=== PATIENT | female | born 1985 | race Asian ===

== ENCOUNTER 2017-04-12 17:02 | Emergency (ER) | payer MEDICAID ==
[~2017-04-12] VITALS: Ht 160 cm; Wt 63.7 kg
[2017-04-12 17:12] VITALS: BP 125/83
[2017-04-12] MEDS ORDERED: LIDOCAINE 1%, 20ML SQ ONE (17:30)
[2017-04-12] MEDS ORDERED: LIDOCAINE 1%, 20ML ONE (17:40)
== END 2017-04-12 18:59 | disposition home or self-care (01) ==
LOC: ED 18:55
DX: O99.712 Diseases of the skin and subcutaneous tissue complicating pregnancy, second trimester (principal); O26.892 Other specified pregnancy related conditions, second trimester; L02.412 Cutaneous abscess of left axilla; Z3A.18 18 weeks gestation of pregnancy
CPT/HCPCS: 10060; 99283

== ENCOUNTER 2017-04-16 17:41 | Emergency (ER) | payer MEDICAID ==
[~2017-04-16] VITALS: Ht 160 cm; Wt 63.4 kg
[2017-04-16 17:43] VITALS: BP 119/78
== END 2017-04-16 19:30 | disposition home or self-care (01) ==
LOC: ED 19:15
DX: L02.412 Cutaneous abscess of left axilla (principal)
CPT/HCPCS: 99283

== ENCOUNTER 2017-04-18 14:48 | Emergency (ER) | payer MEDICAID ==
[~2017-04-18] VITALS: Ht 160 cm; Wt 63.4 kg
[2017-04-18 14:49] VITALS: BP 109/76
== END 2017-04-18 15:38 | disposition home or self-care (01) ==
LOC: ED 15:28
DX: L02.414 Cutaneous abscess of left upper limb (principal)
CPT/HCPCS: 99283